=== PATIENT | male | born 1980 | race Caucasian/White ===

== ENCOUNTER 2016-11-05 05:35 | Day surgery (SDC) | payer OTHER ==
[~2016-11-05] VITALS: Ht 188 cm; Wt 92.5 kg
[~2016-11-05 05:35] MED LIST: NORCO 5-325 TA1 EACH PO
[2016-11-05] MEDS ORDERED: NORCO 5-325 TA1 EACH PO (09:12)
--- NOTE | 2016-11-05 10:09 | OR ---
[facility] [address] [place], [place] [address] Signed DATE OF PROCEDURE: 11/05/16 PREOPERATIVE DIAGNOSIS: Recurrent incarcerated umbilical hernia. POSTOPERATIVE DIAGNOSIS: Recurrent incarcerated umbilical hernia. PROCEDURE Repair of recurrent umbilical hernia with intraabdominal Ventralex mesh (6.4 cm). ESTIMATED BLOOD LOSS: None. INDICATIONS Olaf is a 36-year-old gentleman from our [facility]. He worked in [employer], doing heavy labor for many years. He is planning on going back to the [employer] after he is released from the long-term. Around 2008, he had a small umbilical hernia repaired with suture. He said it was probably the size of his index finger. Now that he is in long-term, he likes to lift weights to help stay in shape. He felt a pulling and tearing and burning at the umbilicus a number weeks ago. He felt a bulge in that area and he could not reduce it. He had been up to the [facility]. On physical exam, he had an incarcerated umbilical hernia. An ultrasound showed a fascial defect around 7.9 mm. Consequently, he was asked to see me as a general surgeon. In the meantime, he quit lifting weights. He said it was too painful. In the office, I explained to Olaf the nature of an umbilical hernia. We discussed the difference between a primary suture repair and a mesh repair. He also understands the expected intraop and postop course. There is risk to surgery including but not limited to bleeding, infection, scarring, change in contour of the skin, damage to bowel, infection of mesh requiring removal, recurrent hernias and chronic pain. He had expressed understanding and wished to proceed. PROCEDURE NOTE Olaf was taken into the operating room and placed in the supine position under general endotracheal tube anesthesia. He was given preoperative antibiotics along with subcutaneous heparin. SCDs were utilized. He was then prepped and draped in the usual sterile fashion. We then utilized his previous supraumbilical vertical incision and we carried it down through the tissues bluntly and with the cautery. We encountered at least 2 of his previous stitches. We can see that he pulled through one of the stitches and gave himself a small hernia just above the umbilicus. We have divided the umbilicus itself from the underlying fascia and he had a small hernia at the base of the umbilicus as well. There was just a small bridge a couple mm wide between the 2 hernias. We divided that bridge and it was just large enough to put my index finger through and into the abdominal cavity. We therefore chose a piece of round Ventralex mesh measuring 6.4 cm in diameter. That was inserted into the abdomen, brought up, flushed against the Electronically Signed By: DEVENDRA DIAZ MD 11/05/16 0949 Electronically Signed By: DEVENDRA DIAZ MD 11/05/16 1009 PATIENT NAME: OLAF YI OPERATIVE REPORT DATE OF : 78 PHYSICIAN: DEVENDRA DIAZ MD REPORT #: [id number] REPORT IS CONFIDENTIAL AND NOT TO BE RELEASED WITHOUT AUTHORIZATION [address] [address] Signed posterior abdominal wall. We closed the fascial defect transversely with a running #1 Prolene suture. Several passes of the suture went through the tab of the mesh to help hold it in place. The tab was t hen cut flush with fascia and discarded. Local anesthetic was then copiously injected in the abdominal wall and the skin. The wound was irrigated and suctioned out until clear. The umbilical skin was then held down to the midline fascia with an interrupted 2-0 PDS suture. The dermis was reapproximated with interrupted 3-0 subcuticular Monocryl sutures. The skin edges were then reapproximated in a running 6-0 fast absorbing plain gut suture. Dry gauze and tape was then applied. Olaf was then awakened from his anesthesia, extubated in the OR, and taken to recovery room in stable condition. MD RAMSES Johnson/Modl /[id number] cc: Velvet Barton M.D. Electronically Signed By: DEVENDRA DIAZ MD 11/05/16 0949 Electronically Signed By: DEVENDRA DIAZ MD 11/05/16 1009 PATIENT NAME: OLAF YI OPERATIVE REPORT DATE OF : 78 PHYSICIAN: DEVENDRA DIAZ MD REPORT #: [id number] REPORT IS CONFIDENTIAL AND NOT TO BE RELEASED WITHOUT AUTHORIZATION
--- NOTE | 2016-11-05 18:34 | EKG ---
[facility] [address] [facility] [place], [place] [address] Signed Sinus bradycardia Inferior infarct , age undetermined Abnormal ECG No previous ECGs available Confirmed by JARRET ESCOBEDO MD ([id number]) on 11/05/2016 6:34:40 PM Electronically Signed By: JARRET ESCOBEDO MD 11/05/16 1834 PATIENT NAME: OLAF YI Electrocardiogram DATE OF : 78 PHYSICIAN: JARRET ESCOBEDO MD REPORT #: [id number] REPORT IS CONFIDENTIAL AND NOT TO BE RELEASED WITHOUT AUTHORIZATION
== END 2016-11-05 10:45 | disposition home or self-care (01) ==
LOC: DS 05:35
PROVIDERS: Colon & Rectal Surgery
PROC: 0WUF0JZ Supplement Abdominal Wall with Synthetic Substitute, Open Approach (ICD-10-PCS; principal; 2016-11-05 06:45)
DX: K42.0 Umbilical hernia with obstruction, without gangrene (principal); Z98.890 Other specified postprocedural states; Z82.49 Family history of ischemic heart disease and other diseases of the circulatory system
CPT/HCPCS: 00750; 93005; 93010; C1781; J0330; J0690; J1100; J1170; J1644; J1885; J2250; J2405; J2704; J3010; J7120

== ENCOUNTER 2018-07-06 20:00 | Emergency (ER) | payer OTHER ==
[~2018-07-06] VITALS: Ht 185.4 cm; Wt 98.9 kg
--- OUTSIDE RECORDS SUMMARY | ~2018-07-06 | XMS | Clinical Summary ---
Demographics + + + | Address | [address] | | | [place] [address] | + + + | Home Phone | | + + + | Preferred Language | Unknown | + + + | Marital Status | Unknown | + + + | Sabianism Affiliation | Unknown | + + + | Race | Unknown | + + + | Ethnic Group | Unknown | + + + Author + + + | Author | [facility] [employer] [facility] | + + + | Organization | [facility] | + + + | Address | Unknown | + + + | Phone | Unavailable | + + + Support + + +---------+ + | Name | Relationship | Address | Phone | + + +---------+ + | No,Contact | ECON | Unknown | | + + +---------+ + Care Team Providers + +------+ + | Care Chemistry Technical Officer Name | Role | Phone | + +------+ + | Uri Whitman MD | PP | | + +------+ + Allergies No Known Allergies Current Medications No known medications Active Problems + + + | Problem | Noted Date | + + + | Arrhythmia | | + + + | Hypertension | | + + + Family History + + +------+ + | Medical History | Relation | Name | Comments | + + +------+ + | Asthma | Mother | | | + + +------+ + | Coronary art dis | Mother | | | + + +------+ + | Heart disease | Mother | | | + + +------+ + | Leukemia | Sister | | | + + +------+ + + +------+ + + | Relation | Name | Status | Comments | + +------+ + + | Daughter | | Alive | | + +------+ + + | Father | | Alive | | + +------+ + + | Mother | | Alive | | + +------+ + + | Sister | | Alive | | + +------+ + + | Sister | | Alive | | + +------+ + + | Sister | | | | | | | (Age | | | | | 36) | | + +------+ + + | Sister | | Alive | | + +------+ + + | Sister | | Alive | | + +------+ + + | Son | | Alive | | + +------+ + + | Son | | Alive | | + +------+ + + Social History + +-------+ +--------+ + | Tobacco Use | Types | Packs/Day | Years | Date | | | | | Used | | + +-------+ +--------+ + | Former Smoker | | 1.5 | 15 | Quit: 04/28/2014 | + +-------+ +--------+ + + + +---------+ + | Alcohol Use | Drinks/We | oz/Week | Comments | | | ek | | | + + +---------+ + | No | | | | + + +---------+ + + + + | Sex Assigned at | Date Recorded | | | | + + + | Not on file | | + + + Last Filed Vital Signs + + + + | Vital Sign | Reading | Time Taken | + + + + | Blood Pressure | 126/80 | 04/28/2016 1:07 PM PDT | + + + + | Pulse | 85 | 04/28/2016 1:07 PM PDT | + + + + | Temperature | - | - | + + + + | Respiratory Rate | - | - | + + + + | Oxygen Saturation | 97% | 04/28/2016 1:07 PM PDT | + + + + | Inhaled Oxygen | - | - | | Concentration | | | + + + + | Weight | 97.3 kg (214 lb 9.6 | 04/28/2016 1:07 PM PDT | | | oz) | | + + + + | Height | 185.4 cm (6' 1") | 04/28/2016 1:07 PM PDT | + + + + | Body Mass Index | 28.31 | 04/28/2016 1:07 PM PDT | + + + + Plan of Treatment + + + + + | Health Maintenance | Due Date | Last Done | Comments | + + + + + | Vaccine: | | | | | Dtap/Tdap/Td (1 - | 9 | | | | Tdap) | | | | + + + + + | Vaccine: Influenza | | | | | (Season Ended) | 9 | | | + + + + + Results Not on filefrom Last 3 Months Insurance + +--------+ +------+-------+---------+ | Payer | Benefi | Subscriber | Type | Phone | Address | | | t Plan | ID | | | | | | / | | | | | | | Group | | | | | + +--------+ +------+-------+---------+ | [employer] | [employer] | [id number] | | | | | | RECTIO | | | | | | | NAL | | | | | | | HEALTH | | | | | | | | | | | | | | PARTNE | | | | | | | RS | | | | | + +--------+ +------+-------+---------+ + +--------+ +--------+ + + | Guarantor Name | Accoun | Relation to | Date | Phone | Billing Address | | | t Type | Patient | of | | | | | | | | | | + +--------+ +--------+ + + | [employer],EASTERN | Correc | Other | [birth year] | Home: | [address] | | [place] | tional | | [phone] | [phone] | [place] [address] | | | | | | [phone] | | | | Facili | | | | | | | ty | | | | | + +--------+ +--------+ + +
--- OUTSIDE RECORDS SUMMARY | ~2018-07-06 | XMS | Clinical Summary ---
Demographics + + + | Address | [address] | | | [place] [address] | + + + | Home Phone | | + + + | Preferred Language | Unknown | + + + | Marital Status | Unknown | + + + | Gnosticism Affiliation | Unknown | + + + | Race | Unknown | + + + | Ethnic Group | Unknown | + + + Author + + + | Author | [facility] [employer] [facility] | + + + | Organization | [facility] | + + + | Address | Unknown | + + + | Phone | Unavailable | + + + Support + + +---------+ + | Name | Relationship | Address | Phone | + + +---------+ + | No,Contact | ECON | Unknown | | + + +---------+ + Care Team Providers + +------+ + | Care Transformer Coil Winder Name | Role | Phone | + [...] +------+-------+---------+ | [employer] | [employer] | [id number] | | | | | | RECT[employer] [...] Other | [birth year] | Home: | [address] | | [place] | tional | | 1901 | [phone] | [place] [address] | | | | | | [phone] | | | | Facili | | | | | | | ty | | | | | + +--------+ +--------+ + +
== END 2018-07-06 22:13 | disposition home or self-care (01) ==
LOC: ED 20:00
PROC: 0CQ1XZZ Repair Lower Lip, External Approach (ICD-10-PCS; principal; 2018-07-06)
PROC: 0CQ0XZZ Repair Upper Lip, External Approach (ICD-10-PCS; 2018-07-06)
DX: S01.511A Laceration without foreign body of lip, initial encounter (principal); S00.83XA Contusion of other part of head, initial encounter; Z87.891 Personal history of nicotine dependence; Y04.0XXA Assault by unarmed brawl or fight, initial encounter
CPT/HCPCS: 70450; 70486; 99283-25

== ENCOUNTER 2019-04-07 09:24 | Emergency (ER) | payer OTHER ==
[~2019-04-07] VITALS: Ht 185.4 cm; Wt 98.9 kg
[2019-04-07] MEDS ORDERED: KEFLEX500 MG PO (11:08)
== END 2019-04-07 11:39 | disposition home or self-care (01) ==
LOC: ED 09:24
DX: S67.196A Crushing injury of right little finger, initial encounter (principal); S61.316A Laceration without foreign body of right little finger with damage to nail, initial encounter; W20.8XXA Other cause of strike by thrown, projected or falling object, initial encounter; Z87.891 Personal history of nicotine dependence
CPT/HCPCS: 11760; 12001; 73140; 90471; 90715; 99283-25; A9270